=== PATIENT | female | born 1960 | race American Indian/Alaskan Native ===

== ENCOUNTER 2021-10-29 20:24 | Inpatient (IN) | payer OTHER ==
--- NOTE | 2021-10-29 21:38 | Cat Scan Report ---
CT HEAD WITHOUT CONTRAST INDICATION / CLINICAL INFORMATION: neuro deficits <6hrs or sx present upon awakening. TECHNIQUE: All CT scans at this location are performed using CT dose reduction for ALARA by means of automated e xposure control. COMPARISON: None available. FINDINGS: HEMORRHAGE: No evidence of intracranial hemorrhage or extra-axial fluid collection. EXTRA-AXIAL SPACES: Cortical sulci, sylvian fissures and basilar cisterns have an unremarkable appear ance. VENTRICULAR SYSTEM: The third and lateral ventricles are of normal size and configuration. CEREBRAL PARENCHYMA: Regions of decreased brain parenchymal attenuation identified in the white matte r of both cerebral hemispheres most likely on the basis of microvascular ischemic change. A more well -circumscribed area of decreased brain parenchymal attenuation is observed on the anterior margin of the left internal capsule and head of left caudate nucleus. Small deep infarction in this location is suspected. Could be subacute or chronic. Magnetic resonance imaging of the brain would be useful to more accurately date this abnormality. Findings suggest presence of a remote small deep infarction in a right basal ganglia location. MIDLINE SHIFT OR HERNIATION: There is no mass effect. CEREBELLUM / BRAINSTEM: Brainstem and cerebellum have an unremarkable appearance. MIDLINE STRUCTURES:No abnormalities of the pituitary gland or pineal region are identified. INTRACRANIAL VESSELS:No abnormalities are identified on this noncontrast head CT. ORBITS: visualized portions of the orbits have an unremarkable appearance. SOFT TISSUES of HEAD: No significant abnormality. CALVARIUM: Evaluation of bone windows reveals no significant abnormalities. PARANASAL SINUSES / MASTOID AIR CELLS: Visualized portions of the paranasal sinuses are free from inf lammatory mucosal disease. Mastoid air cells are normally pneumatized. IMPRESSION: 1. A 1 cm diameter region of decreased attenuation is observed involving anterior limb of the left in ternal capsule and adjacent head of caudate nucleus. This likely represents a small deep infarction w hich could be subacute or chronic. Consider magnetic resonance imaging for further characterization o f this finding. Signer Name: Seferino Vera MD Signed: 10/29/2021 9:33 PM Workstation Name: [id number]
[2021-10-29 21:51] LABS: Basophils % (Auto) 0.7 % (0.0-1.8); Eosinophils # (Auto) 0.2 K/mm3 (0.0-0.4); Hematocrit 41.4 % (30.3-42.9); Hemoglobin 13.6 gm/dl (10.1-14.3); Lymphocytes % (Auto) 53.3 % (13.4-35.0); Mean Corpuscular HGB Conc 33 % (30-34); Mean Corpuscular Volume 90 fl (79-97); Monocytes # (Auto) 0.4 K/mm3 (0.0-0.8); Monocytes % (Auto) 5.9 % (0.0-7.3); Platelet Count 204 K/mm3 (140-440); Red Blood Count 4.61 M/mm3 (3.65-5.03); Red Cell Distribution Width 14.7 % (13.2-15.2)
[2021-10-29 21:59] LABS: INR 0.87 (0.87-1.13)
[2021-10-29 22:00] LABS: Partial Thromboplastin Time 29.3 Sec. (24.2-36.6)
[2021-10-29 22:13] LABS: BUN/Creatinine Ratio 21; Blood Urea Nitrogen 17 mg/dL (7-17); Calcium 9.7 mg/dL (8.4-10.2); Hemolysis Index 13
--- NOTE | 2021-10-30 00:23 | Emergency Department Report ---
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 Patient told her daughter who encouraged her to come to the emergency room and get evaluated. Patient also reports difficulty swallowing water yesterday morning. No fall or trauma reported. No other modifying or associated factors reported. - Related Data Allergies/Adverse Reactions: Allergies Allergy/AdvReac Type Severity Reaction Status Date / Time No Known Allergies Allergy Verified 10/29/21 20:38 ED Review of Systems ROS: Stated complaint: SLUR TALKING,STOKE SX Other details as noted in HPI Comment: All other systems reviewed and negative Neurological: other (Speech changes) ED Past Medical Hx - Past Medical History Previous Medical History?: Yes Hx Hypertension: Yes Hx CVA: Yes (LT SIDED DEFICITS 2018) Hx Diabetes: Yes (AGE 48) - Surgical History Past Surgical History?: No - Social History Smoking Status: Current Every Day Smoker ED Neuro Physical Exam - General Limitations: No Limitations General appearance: alert, in no apparent distress Suspected Stroke: Yes - Head Head exam: Present: normal inspection - Eye Eye exam: Present: normal appearance Pupils: Present: normal accommodation - ENT ENT exam: Present: normal exam, normal orophraynx, mucous membranes dry - Neck Neck exam: Present: normal inspection, full ROM. Absent: tenderness - Respiratory Respiratory exam: Present: normal lung sounds bilaterally. Absent: respiratory distress, accessory muscle use - Cardiovascular Cardiovascular Exam: Present: regular rate, normal rhythm, normal heart sounds - GI/Abdominal GI/Abdominal exam: Present: soft, normal bowel sounds. Absent: distended, tenderness - Extremities Exam Extremities exam: Present: normal inspection, full ROM, normal capillary refill. Absent: tenderness, pedal edema - Back Exam Back exam: Present: normal inspection. Absent: tenderness - Neurological Exam Neurological exam: Present: alert, oriented X3 - NIHSS Assessment Interval: Baseline 1a. Level of Consciousness: alert/keenly responsive 1b. LOC Questions: answers both correctly 1c. LOC Commands: performs tasks correctly 2. Best Gaze: normal 3. Visual: no visual loss 4. Facial Palsy: normal symmetrical movement 5b. Motor Arm Right: no drift 5a. Motor Arm Left: no drift 6a. Motor Leg Left: no drift 6b. Motor Leg Right: no drift 7. Limb Ataxia: absent 8. Sensory: normal 9. Best Language: no aphasia 10. Dysarthria: normal 11. Extinction/Inattention: no abnormality Total Score: 0 Stroke Severity: No Stroke Symptoms - Psychiatric Psychiatric exam: Present: normal affect, normal mood - Skin Skin exam: Present: warm, normal color ED Course Vital Signs 10/30/21 10/30/21 00:34 02:25 Temperature 98.5 F 98.5 F Pulse Rate 83 86 Respiratory 15 16 Rate Blood Pressure 200/83 212/89 [Left] O2 Sat by Pulse 100 Oximetry - Consultations Consultation #1: 10/30/21 02:50 Dr Galvan consulted to have patient seen during the day Consultation #2: 10/30/21 02:50 Dr Kramer consulted who accept pt for further evaluation and treatment - Lab Data Result diagrams: 10/29/21 21:35 10/29/21 21:35 Lab Results 10/29/21 10/29/21 10/29/21 Range/Units 21:35 21:35 21:35 WBC 7.4 (4.5-11.0) K/mm3 RBC 4.61 (3.65-5.03) M/mm3 Hgb 13.6 (10.1-14.3) gm/dl Hct 41.4 (30.3-42.9) % MCV 90 (79-97) fl MCH 30 (28-32) pg MCHC 33 (30-34) % RDW 14.7 (13.2-15.2) % Plt Count 204 (140-440) K/mm3 Lymph % (Auto) 53.3 H (13.4-35.0) % [place] % (Auto) 5.9 (0.0-7.3) % Eos % (Auto) 2.0 (0.0-4.3) % Baso % (Auto) 0.7 (0.0-1.8) % Lymph # (Auto) 4.0 (1.2-5.4) K/mm3 [place] # (Auto) 0.4 (0.0-0.8) K/mm3 Eos # (Auto) 0.2 (0.0-0.4) K/mm3 Baso # (Auto) 0.0 (0.0-0.1) K/mm3 Seg Neutrophils % 38.1 L (40.0-70.0) % Seg Neutrophils # 2.8 (1.8-7.7) K/mm3 PT 12.8 (12.2-14.9) Sec. INR 0.87 (0.87-1.13) APTT 29.3 (24.2-36.6) Sec. Thrombin Time (15.1-19.6) Sec. Sodium 146 H (137-145) mmol/L Potassium 4.0 (3.6-5.0) mmol/L Chloride 111.6 H (98-107) mmol/L Carbon Dioxide 25 (22-30) mmol/L Anion Gap 13 mmol/L BUN 17 (7-17) mg/dL Creatinine 0.8 (0.6-1.2) mg/dL Estimated GFR > 60 ml/min BUN/Creatinine Ratio 21 % Glucose 109 H (65-100) mg/dL Calcium 9.7 (8.4-10.2) mg/dL Troponin T < 0.010 (0.00-0.029) ng/mL 10/29/21 Range/Units 21:35 WBC (4.5-11.0) K/mm3 RBC (3.65-5.03) M/mm3 Hgb (10.1-14.3) gm/dl Hct (30.3-42.9) % MCV (79-97) fl MCH (28-32) pg MCHC (30-34) % RDW (13.2-15.2) % Plt Count (140-440) K/mm3 Lymph % (Auto) (13.4-35.0) % [place] % (Auto) (0.0-7.3) % Eos % (Auto) (0.0-4.3) % Baso % (Auto) (0.0-1.8) % Lymph # (Auto) (1.2-5.4) K/mm3 [place] # (Auto) (0.0-0.8) K/mm3 Eos # (Auto) (0.0-0.4) K/mm3 Baso # (Auto) (0.0-0.1) K/mm3 Seg Neutrophils % (40.0-70.0) % Seg Neutrophils # (1.8-7.7) K/mm3 PT (12.2-14.9) Sec. INR (0.87-1.13) APTT (24.2-36.6) Sec. Thrombin Time 41.5 H (15.1-19.6) Sec. Sodium (137-145) mmol/L Potassium (3.6-5.0) mmol/L Chloride (98-107) mmol/L Carbon Dioxide (22-30) mmol/L Anion Gap mmol/L BUN (7-17) mg/dL Creatinine (0.6-1.2) mg/dL Estimated GFR ml/min BUN/Creatinine Ratio % Glucose (65-100) mg/dL Calcium (8.4-10.2) mg/dL Troponin T (0.00-0.029) ng/mL - Medical Decision Making here with suspected stroke in a patient with recent history of CVA 2 years -- who now present with likely stroke -- will go ahead and rule out CVA with initial CT head and order CBC, CMP and UA for any infection or electrolytes abnormality -- NIH noted to be zero and the initial episode was 24 hours ago -- CT head resulted -- FINDINGS: HEMORRHAGE: No evidence of intracranial hemorrhage or extra-axial fluid collection. EXTRA-AXIAL SPACES: Cortical sulci, sylvian fissures and basilar cisterns have an unremarkable appearance. VENTRICULAR SYSTEM: The third and lateral ventricles are of normal size and configuration. CEREBRAL PARENCHYMA: Regions of decreased brain parenchymal attenuation identified in the white matter of both cerebral hemispheres most likely on the basis of microvascular ischemic change. A more well-circumscribed area of decreased brain parenchymal attenuation is observed on the anterior margin of the left internal capsule and head of left caudate nucleus. Small deep infarction in this location is suspected. Could be subacute or chronic. Magnetic resonance imaging of the brain would be useful to more accurately date this abnormality. Findings suggest presence of a remote small deep infarction in a right basal ganglia location. MIDLINE SHIFT OR HERNIATION: There is no mass effect. CEREBELLUM / BRAINSTEM: Brainstem and cerebellum have an unremarkable appearance. MIDLINE STRUCTURES:No abnormalities of the pituitary gland or pineal region are identified. INTRACRANIAL VESSELS:No abnormalities are identified on this noncontrast head CT. ORBITS: visualized portions of the orbits have an unremarkable appearance. SOFT TISSUES of HEAD: No significant abnormality. CALVARIUM: Evaluation of bone windows reveals no significant abnormalities. PARANASAL SINUSES / MASTOID AIR CELLS: Visualized portions of the paranasal sinuses are free from inflammatory mucosal disease. Mastoid air cells are normally pneumatized. IMPRESSION: 1. A 1 cm diameter region of decreased attenuation is observed involving anterior limb of the left internal capsule and adjacent head of caudate nucleus. This likely represents a small deep infarction which could be subacute or chronic. Consider magnetic resonance imaging for further characterization of this finding. Critical care attestation.: If time is entered above; I have spent that time in minutes in the direct care of this critically ill patient, excluding procedure time. ED Disposition Clinical Impression: CVA (cerebral vascular accident) Qualifiers: CVA mechanism: unspecified Qualified Code(s): I63.9 - Cerebral infarction, unspecified Disposition: 09 ADMITTED INPATIENT Is pt being admited?: Yes Does the pt Need Aspirin: No Condition: Stable Time of Disposition: 02:51
[2021-10-30] MEDS ORDERED: MORPHINE 2 MG/1 ML INJ IV PRN ×2 (02:48→04:07)
[2021-10-30] MEDS ORDERED: ACETAMINOPHEN 325 MG TAB PO PRN ×2 (02:48→04:07)
[2021-10-30] MEDS ORDERED: MORPHINE 4 MG/1 ML INJ IV PRN (04:07)
[2021-10-30] MEDS ORDERED: ALBUTEROL 2.5 MG/3 ML NEBU IH PRN (04:07)
[2021-10-30] MEDS ORDERED: ONDANSETRON 4 MG/2 ML INJ IV PRN (04:07)
[2021-10-30] MEDS ORDERED: DEXTROSE 50% IN WATER (25GM) 50 ML SYRINGE IV PRN (04:07)
[2021-10-30] MEDS ORDERED: SODIUM CHLORIDE 0.9% 1000 ML 1,000 ML IV SCH (04:15)
--- NOTE | 2021-10-30 04:15 | History and Physical Report ---
History of Present Illness Date of examination: 10/30/21 Date of admission: 10/30/21 02:48 Chief complaint: Unable to speak History of present illness: 61-year-old female with a history of diabetes, hypertension and CVA about 2 years ago with left-sided weakness as a residual now came in tonight with an episode of inability to speak 24 hours ago yesterday morning which is improved at this point. Patient told her daughter who encouraged her to come to the emergency room and get evaluated. Patient also reports difficulty swallowing water yesterday morning. No fall or trauma reported. No other modifying or associated factors reported. 's initial CT scan of the head shows a 1 cm diameter region of decreased attenuation is observed involving anterior limb of the left internal capsule and adjacent head of the caudate nucleus. This likely represents a small deep infection which could be subacute or chronic. So going to admit the patient we will put the patient on aspirin, statin order MRI of the brain and consult neurology Past History Past Medical History: diabetes, hypertension, stroke Past Surgical History: No surgical history Social history: smoking Family history: diabetes, hypertension Medications and Allergies Allergies Allergy/AdvReac Type Severity Reaction Status Date / Time No Known Allergies Allergy Verified 10/29/21 20:38 Active Meds: Active Medications Acetaminophen (Acetaminophen 325 Mg Tab) 650 mg PO Q4H PRN PRN Reason: Pain MILD(1-3)/Fever >100.5/VIGIL Morphine Sulfate (Morphine 2 Mg/1 Ml Inj) 2 mg IV Q4H PRN PRN Reason: Pain, Moderate (4-6) Ondansetron HCl (Ondansetron 4 Mg/2 Ml Inj) 4 mg IV Q8H PRN PRN Reason: Nausea And Vomiting Sodium Chloride (Sodium Chloride 0.9% 10 Ml Flush Syringe) 10 ml IV BID MICH Last Admin: 10/30/21 03:17 Dose: 10 ml Sodium Chloride (Sodium Chloride 0.9% 10 Ml Flush Syringe) 10 ml IV PRN PRN PRN Reason: LINE FLUSH Review of Systems All systems: negative Neurological: change in speech, other (Unable to speak) Exam - Constitutional Vitals: Temp Pulse Resp BP Pulse Ox 98.5 F 86 16 212/89 100 10/30/21 02:25 10/30/21 02:25 10/30/21 02:25 10/30/21 02:25 10/30/21 00:34 General appearance: Present: no acute distress, well-nourished - EENT Eyes: Present: PERRL ENT: hearing intact, clear oral mucosa - Neck Neck: Present: supple, normal ROM - Respiratory Respiratory effort: normal Respiratory: bilateral: CTA - Cardiovascular Heart Sounds: Present: S1 & S2. Absent: rub, click - Extremities Extremities: pulses symmetrical, No edema Peripheral Pulses: within normal limits - Abdominal General gastrointestinal: Present: soft, non-tender, non-distended, normal bowel sounds Female genitourinary: Present: normal - Integumentary Integumentary: Present: clear, warm, dry - Musculoskeletal Musculoskeletal: gait normal, strength equal bilaterally - Psychiatric Psychiatric: appropriate mood/affect, intact judgment & insight - Neurologic Neurologic: CNII-XII intact, moves all extremities HEART Score - HEART Score Troponin: Troponin T < 0.010 ng/mL (0.00-0.029) 10/29/21 21:35 Results - Labs CBC & Chem 7: 10/29/21 21:35 10/29/21 21:35 Labs: Laboratory Last Values WBC 7.4 K/mm3 (4.5-11.0) 10/29/21 21:35 RBC 4.61 M/mm3 (3.65-5.03) 10/29/21 21:35 Hgb 13.6 gm/dl (10.1-14.3) 10/29/21 21:35 Hct 41.4 % (30.3-42.9) 10/29/21 21:35 MCV 90 fl (79-97) 10/29/21 21:35 MCH 30 pg (28-32) 10/29/21 21:35 MCHC 33 % (30-34) 10/29/21 21:35 RDW 14.7 % (13.2-15.2) 10/29/21 21:35 Plt Count 204 K/mm3 (140-440) 10/29/21 21:35 Lymph % (Auto) 53.3 % (13.4-35.0) H 10/29/21 21:35 [place] % (Auto) 5.9 % (0.0-7.3) 10/29/21 21:35 Eos % (Auto) 2.0 % (0.0-4.3) 10/29/21 21:35 Baso % (Auto) 0.7 % (0.0-1.8) 10/29/21 21:35 Lymph # (Auto) 4.0 K/mm3 (1.2-5.4) 10/29/21 21:35 [place] # (Auto) 0.4 K/mm3 (0.0-0.8) 10/29/21 21:35 Eos # (Auto) 0.2 K/mm3 (0.0-0.4) 10/29/21 21:35 Baso # (Auto) 0.0 K/mm3 (0.0-0.1) 10/29/21 21:35 Seg Neutrophils % 38.1 % (40.0-70.0) L 10/29/21 21:35 Seg Neutrophils # 2.8 K/mm3 (1.8-7.7) 10/29/21 21:35 PT 12.8 Sec. (12.2-14.9) 10/29/21 21:35 INR 0.87 (0.87-1.13) 10/29/21 21:35 APTT 29.3 Sec. (24.2-36.6) 10/29/21 21:35 Thrombin Time 41.5 Sec. (15.1-19.6) H 10/29/21 21:35 Sodium 146 mmol/L (137-145) H 10/29/21 21:35 Potassium 4.0 mmol/L (3.6-5.0) 10/29/21 21:35 Chloride 111.6 mmol/L (98-107) H 10/29/21 21:35 Carbon Dioxide 25 mmol/L (22-30) 10/29/21 21:35 Anion Gap 13 mmol/L 10/29/21 21:35 BUN 17 mg/dL (7-17) 10/29/21 21:35 Creatinine 0.8 mg/dL (0.6-1.2) 10/29/21 21:35 Estimated GFR > 60 ml/min 10/29/21 21:35 BUN/Creatinine Ratio 21 % 10/29/21 21:35 Glucose 109 mg/dL (65-100) H 10/29/21 21:35 Calcium 9.7 mg/dL (8.4-10.2) 10/29/21 21:35 Troponin T < 0.010 ng/mL (0.00-0.029) 10/29/21 21:35 - Imaging and Cardiology CT Scan - head: report reviewed Assessment and Plan VTE prophylaxis?: Mechanical Plan of care discussed with patient/family: Yes - Patient Problems (1) CVA (cerebral vascular accident) Current Visit: Yes Status: Acute Qualifiers: CVA mechanism: unspecified Qualified Code(s): I63.9 - Cerebral infarction, unspecified Plan to address problem: Admit the patient to the medical telemetry. NPO. Aspirin 325 mg p.o. daily. Lipitor 40 mg p.o. daily. PT OT speech evaluation. MRI of the brain and MRA of the brain and neck with and without contrast, echocardiogram. Neurology evaluation (2) Hypertension Current Visit: Yes Status: Acute Plan to address problem: Hydralazine 10 mg IV every 6 hours as needed. We will continue the home medication. We will monitor the blood pressure closely (3) Diabetes Current Visit: Yes Status: Acute Plan to address problem: Accu-Chek every 6 hours with moderate dose Humalog coverage. Diabetic education. Recheck BMP in the morning (4) Tobacco abuse Current Visit: Yes Status: Acute Plan to address problem: We counseled regarding quit smoking. We put the patient on nicotine patch 40 mg daily (5) Old cerebrovascular accident (CVA) without late effect Current Visit: Yes Status: Acute Plan to address problem: Aspirin 325 mg p.o. daily. Lipitor 40 mg p.o. daily. PT OT speech evaluation. MRI of the brain and MRA of the brain and neck with and without contrast, ec hocardiogram. Neurology evaluation (6) DVT prophylaxis Current Visit: Yes Status: Acute Plan to address problem: SCD for DVT prophylaxis. Pepcid 20 mg IV every 12 hours for GI prophylaxis. Patient is a full code
[2021-10-30] MEDS: INSULIN LISPRO 100 UNIT/ML SUB-Q SCH ×4 (06:14→17:34)
[2021-10-30] MEDS ORDERED: IPRATROPIUM/ALBUTEROL SULFATE 3 ML AMPUL.NEB IH SCH (08:00)
[2021-10-30] MEDS ORDERED: ASPIRIN 325 MG TAB PO SCH (10:00)
[2021-10-30] MEDS ORDERED: hydrALAZINE 20 MG/1 ML INJ IV NR (10:10)
--- NOTE | 2021-10-30 10:11 | Progress Note ---
Assessment and Plan Assessment and plan: - Patient Problems --Acute CVA (cerebral vascular accident) Aspirin 81 mg p.o. daily. Neurology added Plavix 75 mg p.o. daily for 21 days Lipitor 40 mg p.o. daily. PT OT speech evaluation. CT head CTA neck MRI brain; MRA brain' TTE; transthoracic echo; bubble study no PFO EF 55 to 60% Dysarthria; speech therapy has evaluated,, Patient's speech significantly improved still slightly slow but family Dysphagia; speech and swallow evaluated the patient modified barium swallow study today Recommended mechanical soft diet ss tolerated PT evaluation and recommendations/outpatient PT For OT evaluation recommendations/walker and home health OT Rehab evaluation --Hypertension/permissive hypertension 24 to 48 hours Continue current antihypertensives As needed medications -- Type II diabetes melitis; Accu-Cheks sliding scale coverage ADA diet and insulin as needed -- Ongoing tobacco abuse Smoking cessation counseling Discussed with sequelae of long-term tobacco use Recent complications Strongly advised to quit tobacco use, consider nicotine patch as needed --Old history of CVA without residual deficit Aspirin 325 mg p.o. daily. Lipitor 40 mg p.o. daily. PT OT speech evaluation. MRI of the brain and MRA of the brain and neck with and without contrast, echocardiogram. Neurology evaluation --DVT prophylaxis SCD for DVT prophylaxis. Pepcid 20 mg IV every 12 hours for GI prophylaxis. Patient is a full code --Counseling smoking cessation +15 minutes Advance care plan +35 minutes I have discussed in detail patient's condition, discussed patient's diagnosis I also discussed in detail patient's tests and reports, consultants recommendations I discussed the diagnosis, I discussed with the patient the prognosis, the treatment plan And therapy plan, she had many questions, answered all of them, agreed with the treatment plan We will closely monitor the patient and adjust management as needed Plan of care reviewed with the patient and nurse Same day admission prolonged care inpatient service; 30 minutes Plan of care reviewed with the patient, 2 daughters at the bedside, patient's nurse And case management History Interval history: I have seen and examined the patient at the bedside Patient's chart and medications reviewed Patient was admitted acute CVA not a candidate for tPA Patient had dysarthria, dysphagia and left-sided weakness Neuro work-up is in progress Hospitalist Physical - Constitutional Vitals: Temp Pulse Resp BP Pulse Ox 97.9 F 83 18 204/94 96 10/30/21 09:30 10/30/21 09:30 10/30/21 09:30 10/30/21 09:30 10/30/21 09:30 General appearance: Present: no acute distress, well-nourished, other (Slow speech mild dysarthria) - EENT Eyes: Present: PERRL, EOM intact - Neck Neck: Present: supple, normal ROM - Respiratory Respiratory effort: normal Respiratory: bilateral: diminished, negative: rales, rhonchi, wheezing - Cardiovascular Rhythm: regular Heart Sounds: Present: S1 & S2 - Extremities Extremities: no ischemia, No edema - Abdominal General gastrointestinal: soft, non-tender, non-distended, normal bowel sounds - Integumentary Integumentary: Present: clear, warm - Psychiatric Psychiatric: appropriate mood/affect, cooperative - Neurologic Neurologic: other (Acute CVA with dysarthria /dysphagia) HEART Score - HEART Score Troponin: Troponin T < 0.010 ng/mL (0.00-0.029) 10/29/21 21:35 Results - Labs CBC & Chem 7: 10/31/21 05:46 10/31/21 12:00 Labs: Laboratory Last Values WBC 7.4 K/mm3 (4.5-11.0) 10/29/21 21:35 RBC 4.61 M/mm3 (3.65-5.03) 10/29/21 21:35 Hgb 13.6 gm/dl (10.1-14.3) 10/29/21 21:35 Hct 41.4 % (30.3-42.9) 10/29/21 21:35 MCV 90 fl (79-97) 10/29/21 21:35 MCH 30 pg (28-32) 10/29/21 21:35 MCHC 33 % (30-34) 10/29/21 21:35 RDW 14.7 % (13.2-15.2) 10/29/21 21:35 Plt Count 204 K/mm3 (140-440) 10/29/21 21:35 Lymph % (Auto) 53.3 % (13.4-35.0) H 10/29/21 21:35 [place] % (Auto) 5.9 % (0.0-7.3) 10/29/21 21:35 Eos % (Auto) 2.0 % (0.0-4.3) 10/29/21 21:35 Baso % (Auto) 0.7 % (0.0-1.8) 10/29/21 21:35 Lymph # (Auto) 4.0 K/mm3 (1.2-5.4) 10/29/21 21:35 [place] # (Auto) 0.4 K/mm3 (0.0-0.8) 10/29/21 21:35 Eos # (Auto) 0.2 K/mm3 (0.0-0.4) 10/29/21 21:35 Baso # (Auto) 0.0 K/mm3 (0.0-0.1) 10/29/21 21:35 Seg Neutrophils % 38.1 % (40.0-70.0) L 10/29/21 21:35 Seg Neutrophils # 2.8 K/mm3 (1.8-7.7) 10/29/21 21:35 PT 12.8 Sec. (12.2-14.9) 10/29/21 21:35 INR 0.87 (0.87-1.13) 10/29/21 21:35 APTT 29.3 Sec. (24.2-36.6) 10/29/21 21:35 Thrombin Time 41.5 Sec. (15.1-19.6) H 10/29/21 21:35 Sodium 146 mmol/L (137-145) H 10/29/21 21:35 Potassium 4.0 mmol/L (3.6-5.0) 10/29/21 21:35 Chloride 111.6 mmol/L (98-107) H 10/29/21 21:35 Carbon Dioxide 25 mmol/L (22-30) 10/29/21 21:35 Anion Gap 13 mmol/L 10/29/21 21:35 BUN 17 mg/dL (7-17) 10/29/21 21:35 Creatinine 0.8 mg/dL (0.6-1.2) 10/29/21 21:35 Estimated GFR > 60 ml/min 10/29/21 21:35 BUN/Creatinine Ratio 21 % 10/29/21 21:35 Glucose 109 mg/dL (65-100) H 10/29/21 21:35 POC Glucose 127 mg/dL (70-105) H 10/30/21 08:11 Calcium 9.7 mg/dL (8.4-10.2) 10/29/21 21:35 Troponin T < 0.010 ng/mL (0.00-0.029) 10/29/21 21:35 Active Medications - Current Medications Current Medications: Generic Name Dose Route Start Last Admin Trade Name Freq PRN Reason Stop Dose Admin Acetaminophen 650 mg 10/30/21 02:48 Acetaminophen 325 Mg Tab PO Q4H PRN Pain MILD(1-3)/Fever >100.5/VIGIL Albuterol 2.5 mg 10/30/21 04:07 Albuterol 2.5 Mg/3 Ml Nebu IH Q4HRT PRN Shortness Of Breath Aspirin 325 mg 10/30/21 10:00 Aspirin 325 Mg Tab PO QDAY [facility] Atorvastatin Calcium 40 mg 10/30/21 22:00 Atorvastatin 40 Mg Tab PO QHS [facility] Dextrose 0 ml 10/30/21 04:07 Dextrose 50% In Water (25gm) 50 Ml Syringe IV Q30MIN PRN Hypoglycemia Protocol Famotidine 20 mg 10/30/21 10:00 Famotidine 20 Mg/2 Ml Inj IV BID [facility] Sodium Chloride 1,000 mls @ 100 mls/hr 10/30/21 04:15 Nacl 0.9% 1000 Ml IV DIRECT [facility] Insulin Human Lispro 0 unit 10/30/21 06:00 10/30/21 06:14 Insulin Lispro 100 Unit/Ml SUB-Q Not Given Q6HR [facility] Protocol Morphine Sulfate 2 mg 10/30/21 02:48 Morphine 2 Mg/1 Ml Inj IV Q4H PRN Pain, Moderate (4-6) Morphine Sulfate 4 mg 10/30/21 04:07 Morphine 4 Mg/1 Ml Inj IV Q4H PRN Pain , Severe (7-10) Nicotine 14 mg 10/30/21 10:00 Nicotine 14 Mg/24 Hr Patch TD QDAY [facility] Ondansetron HCl 4 mg 10/30/21 02:48 Ondansetron 4 Mg/2 Ml Inj IV Q8H PRN Nausea And Vomiting Sodium Chloride 10 ml 10/30/21 03:00 10/30/21 03:17 Sodium Chloride 0.9% 10 Ml Flush Syringe IV 10 ml BID [facility] Administration Sodium Chloride 10 ml 10/30/21 02:48 Sodium Chloride 0.9% 10 Ml Flush Syringe IV PRN PRN LINE FLUSH
[2021-10-30] MEDS: NICOTINE 14 MG/24 HR PATCH TD SCH (11:22)
[2021-10-30] MEDS: FAMOTIDINE 20 MG/2 ML INJ IV SCH ×2 (11:23→21:38)
--- NOTE | 2021-10-30 13:06 | Magnetic Resonance Report ---
MRI BRAIN WITHOUT CONTRAST INDICATION / CLINICAL INFORMATION: stroke, LT SIDED WEAKNESS. TECHNIQUE: Multisequence, multiplanar images were obtained. COMPARISON: None available. FINDINGS: CEREBRAL and CEREBELLAR HEMISPHERES: There are approximately 6 small area of diffusion restriction on the left MCA distribution. The largest area measures 9 mm in the left lamas radiata on diffusion im age 16. There are 3 smaller areas of cortical diffusion restriction in the posterior, superior left t emporal lobe measuring 5 mm. Scattered areas of increased T2 signal in the right and chronic microvas cular ischemic infarct. No evidence of mass or mass effect. No midline shift. No acute hemorrhage. No extra-axial fluid collection. VENTRICLES: Normal in size and configuration for age. VISUALIZED ORBITS: No significant abnormality. VISUALIZED PARANASAL SINUSES: No significant abnormality. ADDITIONAL FINDINGS: None. IMPRESSION: 4 cm areas of diffusion restriction/subacute ischemia in the left MCA distribution as described. Mild nonspecific chronic white matter changes. MRA HEAD WITHOUT CONTRAST INDICATION / CLINICAL INFORMATION: 61 years Female; stroke, LT SIDED WEAKNESS. TECHNIQUE: 3-D time of flight. NASCET type criteria used to evaluate stenoses. COMPARISON: None available. FINDINGS: INTERNAL CAROTID ARTERIES: No significant narrowing appreciated. VERTEBROBASILAR SYSTEM: No significant narrowing appreciated. The left vertebral artery is dominant. DISTAL BRANCHES: Distal branches of the anterior, middle, and posterior cerebral arteries are fairly symmetric in appearance and number. ANEURYSM: None identified. IMPRESSION: No significant abnormality on this MRA of the brain. No large vessel occlusion or high-grade stenosis is appreciated. Signer Name: Aldair Sparrow Jr, MD Signed: 10/30/2021 1:01 PM Workstation Name: [id number]
[2021-10-30] MEDS: ONDANSETRON 4 MG/2 ML INJ IV PRN (13:30)
[2021-10-30] MEDS: hydrALAZINE 25 MG TAB PO SCH ×2 (15:17→21:38)
--- NOTE | 2021-10-30 19:53 | Consultation ---
History of Present Illness Consult date: 10/30/21 Reason for Consult: CVA Chief complaint: Difficulty speaking and difficulty swallowing History of present illness: 61 yo female with htn, dm, cva w/ residual left-sided weakness, tobacco abuse, who presents with a ~24 hour onset of difficulty with language and difficulty with swallowing. Patient is not seen via televideo today due to lack of availability. Past History Past Medical History: diabetes, hypertension, stroke Past Surgical History: No surgical history Social history: smoking Family history: diabetes, hypertension Medications and Allergies Allergies Allergy/AdvReac Type Severity Reaction Status Date / Time No Known Allergies Allergy Verified 10/29/21 20:38 Active Meds: Active Medications Acetaminophen (Acetaminophen 325 Mg Tab) 650 mg PO Q4H PRN PRN Reason: Pain MILD(1-3)/Fever >100.5/VIGIL Albuterol (Albuterol 2.5 Mg/3 Ml Nebu) 2.5 mg IH Q4HRT PRN PRN Reason: Shortness Of Breath Aspirin (Aspirin 325 Mg Tab) 325 mg PO QDAY [facility] Last Admin: 10/30/21 11:22 Dose: 325 mg Atorvastatin Calcium (Atorvastatin 40 Mg Tab) 40 mg PO QHS [facility] Dextrose (Dextrose 50% In Water (25gm) 50 Ml Syringe) 0 ml IV Q30MIN PRN; Protocol PRN Reason: Hypoglycemia Famotidine (Famotidine 20 Mg/2 Ml Inj) 20 mg IV BID [facility] Last Admin: 10/30/21 11:23 Dose: 20 mg Hydralazine HCl (Hydralazine 25 Mg Tab) 25 mg PO Q8HR [facility] Last Admin: 10/30/21 15:17 Dose: 25 mg Insulin Human Lispro (Insulin Lispro 100 Unit/Ml) 0 unit SUB-Q Q6HR [facility]; Protocol Last Admin: 10/30/21 17:34 Dose: Not Given Morphine Sulfate (Morphine 2 Mg/1 Ml Inj) 2 mg IV Q4H PRN PRN Reason: Pain, Moderate (4-6) Morphine Sulfate (Morphine 4 Mg/1 Ml Inj) 4 mg IV Q4H PRN PRN Reason: Pain , Severe (7-10) Nicotine (Nicotine 14 Mg/24 Hr Patch) 14 mg TD QDAY [facility] Last Admin: 10/30/21 11:22 Dose: 14 mg Ondansetron HCl (Ondansetron 4 Mg/2 Ml Inj) 4 mg IV Q8H PRN PRN Reason: Nausea And Vomiting Last Admin: 10/30/21 13:30 Dose: 4 mg Sodium Chloride (Sodium Chloride 0.9% 10 Ml Flush Syringe) 10 ml IV BID [facility] Last Admin: 10/30/21 11:23 Dose: 10 ml Sodium Chloride (Sodium Chloride 0.9% 10 Ml Flush Syringe) 10 ml IV PRN PRN PRN Reason: LINE FLUSH Physical Examination - Vital Signs Vital Signs: Vital Signs Temp Pulse Resp BP Pulse Ox 98.5 F 83 15 200/83 100 10/30/21 00:34 10/30/21 00:34 10/30/21 00:34 10/30/21 00:34 10/30/21 00:34 Results - Laboratory Findings CBC and BMP: 10/29/21 21:35 10/29/21 21:35 Abnormal Lab Findings: Abnormal Labs 10/29/21 10/29/21 10/29/21 21:35 21:35 21:35 Lymph % (Auto) 53.3 H Seg Neutrophils % 38.1 L Thrombin Time 41.5 H Sodium 146 H Chloride 111.6 H Glucose 109 H POC Glucose 10/30/21 10/30/21 10/30/21 05:53 08:11 13:03 Lymph % (Auto) Seg Neutrophils % Thrombin Time Sodium Chloride Glucose POC Glucose 126 H 127 H 129 H 10/30/21 15:45 Lymph % (Auto) Seg Neutrophils % Thrombin Time Sodium Chloride Glucose POC Glucose 134 H Assessment and Plan 61 yo female with htn, dm, cva w/ residual left-sided weakness, tobacco abuse, who presents with a ~24 hour onset of difficulty with language and difficulty with swallowing. 1. Acute Ischemic Stroke / TIA - aspirin 81 mg po qda; plavix 75 mg po qday x21 days; statin therapy for a goal ldl of 70; permissive htn for 24 more hours; nihss q4 hours; confirm ldl, tsh, a1c; tte results pending; ordered cta neck w/ wo contrast; st evaluation/monitoring; stroke education upon discharge. 2. Hypertension - permissive htn for 24 more hours. 3. DM - maintain euglycemia. 4. Aphasia / Dsphagia - st / swallow evaluation / monitoring. 5. Tobacco Abuse - outpatient smoking cessation program via pcp. Neno Galvan MD Neurology
[2021-10-31] MEDS: INSULIN LISPRO 100 UNIT/ML SUB-Q SCH ×4 (01:30→18:14)
[2021-10-31] MEDS: hydrALAZINE 25 MG TAB PO SCH ×3 (05:10→22:33)
[2021-10-31 06:22] LABS: Basophils % (Auto) 0.6 % (0.0-1.8); Eosinophils # (Auto) 0.1 K/mm3 (0.0-0.4); Eosinophils % (Auto) 2.1 % (0.0-4.3); Hematocrit 41.6 % (30.3-42.9); Hemoglobin 13.4 gm/dl (10.1-14.3); Lymphocytes # (Auto) 3.7 K/mm3 (1.2-5.4); Lymphocytes % (Auto) 54.2 % (13.4-35.0); Mean Corpuscular HGB Conc 32 % (30-34); Mean Corpuscular Volume 90 fl (79-97); Monocytes # (Auto) 0.4 K/mm3 (0.0-0.8); Monocytes % (Auto) 5.7 % (0.0-7.3); Platelet Count 196 K/mm3 (140-440); Red Blood Count 4.62 M/mm3 (3.65-5.03); Red Cell Distribution Width 14.7 % (13.2-15.2)
--- NOTE | 2021-10-31 10:58 | Electrocardiograph Report ---
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
[2021-10-31] MEDS: FAMOTIDINE 20 MG/2 ML INJ IV SCH ×2 (11:54→22:33)
[2021-10-31] MEDS: ASPIRIN EC 81 MG TAB PO SCH (11:54)
[2021-10-31] MEDS: CLOPIDOGREL 75 MG TAB PO SCH (11:54)
[2021-10-31] MEDS: NICOTINE 14 MG/24 HR PATCH TD SCH (11:54)
--- NOTE | 2021-10-31 12:18 | Cat Scan Report ---
CT ANGIO NECK INDICATION / CLINICAL INFORMATION: 61 years Female; acute ischemic stroke. TECHNIQUE: Thin cut axial images obtained through the head during IV bolus contrast administration. S agittal, coronal, and 3 plane MIP reconstructions performed by the technologist. NASCET type criteria used evaluate stenoses. All CT scans at this location are performed using CT dose reduction for ALAR A by means of automated exposure control. COMPARISON: None available. FINDINGS: ARCH: Normal aortic arch branching suggested. CAROTID ARTERIES: The visualized common and internal carotid arteries are widely patent. Mild partial ly calcified plaques are identified in the carotid bulbs, right greater than left. There is moderate atherosclerotic disease in the supraclinoid ICAs. VERTEBRAL ARTERIES: Left vertebral system seen. No significant stenosis appreciated. ADDITIONAL FINDINGS: Remainder of the surrounding soft tissues are grossly normal. IMPRESSION: No significant stenosis appreciated on this CTA of the neck. Signer Name: Aldair Sparrow Jr, MD Signed: 10/31/2021 12:14 PM Workstation Name: [id number]
[2021-10-31 12:57] LABS: BUN/Creatinine Ratio 16; Blood Urea Nitrogen 14 mg/dL (7-17); Calcium 9.8 mg/dL (8.4-10.2); Chol/HDL Ratio 4.81 %; HDL Cholesterol 54 mg/dL (40-59); Hemolysis Index 13; LDL Cholesterol,Direct 183 mg/dL (50-130)
--- NOTE | 2021-10-31 13:17 | Fluoroscopy Report ---
MODIFIED BARIUM SWALLOW INDICATION: Coughing with thin liquids- dysphagia TECHNIQUE: Swallowing was evaluated in the lateral position under direct fluoroscopy. FINDINGS: The patient was evaluated with thin liquid, puree and semisolid consistencies. Deglutition was normal. No penetration or aspiration was witnessed. IMPRESSION: Unremarkable exam. Fluoroscopic time: 1.1 minutes Number of fluoroscopic images: 1 Signer Name: Aldair Sparrow Jr, MD Signed: 10/31/2021 1:12 PM Workstation Name: [id number]
--- NOTE | 2021-10-31 16:49 | Consultation ---
History of Present Illness Consult date: 10/31/21 Reason for Consult: CVA Chief complaint: Difficulty speaking and difficulty swallowing History of present illness: 61 yo female with htn, dm, cva w/ residual left-sided weakness, tobacco abuse, who presents with a ~24 hour onset of difficulty with language and difficulty with swallowing. She feels like her speech and swallowing have improved but may not be quite back to normal. Denies a hx of atrial fibrillation or symptoms of palpitations. Continue 1 ppd of tobacco. Past History Past Medical History: diabetes, hypertension, stroke Past Surgical History: No surgical history Social history: smoking Family history: diabetes, hypertension Medications and Allergies Allergies Allergy/AdvReac Type Severity Reaction Status Date / Time No Known Allergies Allergy Verified 10/29/21 20:38 Active Meds: Active Medications Acetaminophen (Acetaminophen 325 Mg Tab) 650 mg PO Q4H PRN PRN Reason: Pain MILD(1-3)/Fever >100.5/VIGIL Albuterol (Albuterol 2.5 Mg/3 Ml Nebu) 2.5 mg IH Q4HRT PRN PRN Reason: Shortness Of Breath Aspirin (Aspirin Ec 81 Mg Tab) 81 mg PO QDAY [facility] Last Admin: 10/31/21 11:54 Dose: 81 mg Atorvastatin Calcium (Atorvastatin 40 Mg Tab) 40 mg PO QHS [facility] Last Admin: 10/30/21 21:38 Dose: 40 mg Clopidogrel Bisulfate (Clopidogrel 75 Mg Tab) 75 mg PO QDAY [facility] Stop: 11/20/21 10:01 Last Admin: 10/31/21 11:54 Dose: 75 mg Dextrose (Dextrose 50% In Water (25gm) 50 Ml Syringe) 0 ml IV Q30MIN PRN; Protocol PRN Reason: Hypoglycemia Famotidine (Famotidine 20 Mg/2 Ml Inj) 20 mg IV BID [facility] Last Admin: 10/31/21 11:54 Dose: 20 mg Hydralazine HCl (Hydralazine 25 Mg Tab) 25 mg PO Q8HR [facility] Last Admin: 10/31/21 05:10 Dose: 25 mg Insulin Human Lispro (Insulin Lispro 100 Unit/Ml) 0 unit SUB-Q Q6HR [facility]; Protocol Last Admin: 10/31/21 08:16 Dose: Not Given Morphine Sulfate (Morphine 2 Mg/1 Ml Inj) 2 mg IV Q4H PRN PRN Reason: Pain, Moderate (4-6) Morphine Sulfate (Morphine 4 Mg/1 Ml Inj) 4 mg IV Q4H PRN PRN Reason: Pain , Severe (7-10) Nicotine (Nicotine 14 Mg/24 Hr Patch) 14 mg TD QDAY [facility] Last Admin: 10/31/21 11:54 Dose: 14 mg Ondansetron HCl (Ondansetron 4 Mg/2 Ml Inj) 4 mg IV Q8H PRN PRN Reason: Nausea And Vomiting Last Admin: 10/30/21 13:30 Dose: 4 mg Sodium Chloride (Sodium Chloride 0.9% 10 Ml Flush Syringe) 10 ml IV BID [facility] Last Admin: 10/31/21 11:55 Dose: 10 ml Sodium Chloride (Sodium Chloride 0.9% 10 Ml Flush Syringe) 10 ml IV PRN PRN PRN Reason: LINE FLUSH Review of Systems All systems: negative (as per hpi;) Physical Examination - Vital Signs Vital Signs: Vital Signs Temp Pulse Resp BP Pulse Ox 98.5 F 83 15 200/83 100 10/30/21 00:34 10/30/21 00:34 10/30/21 00:34 10/30/21 00:34 10/30/21 00:34 - Physical Exam Narrative exam: Gen: nad, well-nourished; Head: normocephalic; Eyes: no gaze deviation; no ptosis; ENT: normal vocalization; CVS: warm and well-perfused; Pulm: no respiratory distress; GI: appears non-distended; Ext: no cyanosis appreciated at distal extremities; Skin: no acute rash at distal extremities; Heme: no pathologic ecchymosis appreciated at distal extremities; Neuro: alert, oriented to name, age, month, year, surroundings, no dysarthria, slight aphasia, CN 2 - PERRL, visual kern grossly intact, CN 3, 4, 6 - EOMI, CN 5 - facial sensation symmetric to light touch, CN 7 - facial movement with mild right droop, CN 8 - hearing grossly intact, CN 9, 10 - uvula midline, CN 11 symmetric shoulder movement, CN 12 - tongue deviation slightly to the right Motor - at least 4+/5 at all exts except 4/5 at LLE; Sensory - light touch symmetric, Cerebellar - fnf /hts intact except with left hts, Gait - deferred secondary to fall risk; NIHSS (1a.) Level of Consciousness:0 (1b.) LOC Questions:0 (1c.) LOC Commands:0 (2.) Best Gaze:0 (3.) Visual:0 (4.) Facial Palsy:1 (5a.) Motor Arm, Left:0 (5b.) Motor Arm, Right:0 (6a.) Motor Leg, Left:0 (6b.) Motor Leg, Right:0 (7.) Limb Ataxia:1 (8.) Sensory:0 (9.) Best Language:1 (10.) Dysarthria:0 (11.) Extinction and Inattention:0 NIHSS Total Score: 3 Results - Laboratory Findings CBC and BMP: 10/31/21 05:46 10/31/21 12:00 Abnormal Lab Findings: Abnormal Labs 10/29/21 10/29/21 10/29/21 21:35 21:35 21:35 Lymph % (Auto) 53.3 H Seg Neutrophils % 38.1 L Thrombin Time 41.5 H Sodium 146 H Chloride 111.6 H Glucose 109 H POC Glucose Cholesterol LDL Cholesterol Direct 10/30/21 10/30/21 10/30/21 05:53 08:11 13:03 Lymph % (Auto) Seg Neutrophils % Thrombin Time Sodium Chloride Glucose POC Glucose 126 H 127 H 129 H Cholesterol LDL Cholesterol Direct 10/30/21 10/31/21 10/31/21 15:45 05:46 07:53 Lymph % (Auto) 54.2 H Seg Neutrophils % 37.4 L Thrombin Time Sodium Chloride Glucose POC Glucose 134 H 120 H Cholesterol LDL Cholesterol Direct 10/31/21 12:00 Lymph % (Auto) Seg Neutrophils % Thrombin Time Sodium Chloride Glucose 108 H POC Glucose Cholesterol 260 H LDL Cholesterol Direct 183 H Assessment and Plan 61 yo female with htn, dm, cva w/ residual left-sided weakness, tobacco abuse, who presents with a ~24 hour onset of difficulty with language and difficulty wi th swallowing. 1. Acute Ischemic Stroke ([facility]: cardioembolic) - aspirin 81 mg po qday; plavix 75 mg po qday x21 days; statin therapy for a goal ldl of 70; aim for normotension; nihss q4 hours x24 hours and then per floor routine; confirm ldl 183, ordered tsh & covid-19; tte results pending; recommend becky and long-term cardiac monitoring to r/o paroxysmal afib or cardioembolic source; normal cta neck w/ wo contrast; st evaluation/monitoring; stroke education upon discharge. 2. Hypertension - aim for normotension. 3. DM - maintain euglycemia. 4. Aphasia / Dysphagia - st / swallow evaluation / monitoring. 5. Tobacco Abuse - outpatient smoking cessation program via pcp. Neno Galvan MD Neurology
[2021-10-31] MEDS ORDERED: ENOXAPARIN 40 MG/0.4 ML INJ SUB-Q SCH (22:00)
[2021-11-01] MEDS: INSULIN LISPRO 100 UNIT/ML SUB-Q SCH ×3 (00:05→12:20)
[2021-11-01] MEDS: hydrALAZINE 25 MG TAB PO SCH (06:38)
[2021-11-01] MEDS: ASPIRIN EC 81 MG TAB PO SCH (09:25)
[2021-11-01] MEDS: CLOPIDOGREL 75 MG TAB PO SCH (09:25)
[2021-11-01] MEDS: NICOTINE 14 MG/24 HR PATCH TD SCH (09:25)
[2021-11-01] MEDS: FAMOTIDINE 20 MG/2 ML INJ IV SCH (09:25)
[2021-11-01] MEDS ORDERED: hydrALAZINE 20 MG/1 ML INJ IV ONE (09:26)
[2021-11-01] MEDS: ONDANSETRON 4 MG/2 ML INJ IV PRN (10:12)
[2021-11-01] MEDS ORDERED: NIFEdipine XL 30 MG TAB PO ONE (11:03)
[2021-11-01] MEDS ORDERED: hydrALAZINE 25 MG TAB PO SCH (11:05)
[2021-11-01 14:14] VITALS: BP 165/88
--- NOTE | 2021-11-01 15:04 | Discharge Summary ---
Providers - Providers Date of Admission: 10/30/21 02:48 Date of discharge: 11/01/21 Attending physician: ADRIA CRAWFORD 10/30/21 02:48 Consult to Physician [CONS] Routine Comment: Consulting Provider: JOON CALERO Physician Instructions: Reason For Exam: stroke 10/30/21 04:07 Consult to Dietitian/Nutrition [CONS] Routine Physician Instructions: Reason For Exam: Reason for Consult: Diet education Occupational Therapy Evaluate and Treat [CONS] Routine Comment: Reason For Exam: Neuro deficits Physical Therapy Evaluation and Treat [CONS] Routine Comment: Reason For Exam: Neuro deficits 10/30/21 12:02 Speech Therapy Evaluation and Treat [CONS] Routine Reason For Exam: swallow evaluation Primary care physician: MINE BOSS Hospitalization Reason for admission: Sudden episode of slurred speech and difficulty swallowing Condition: Stable Pertinent studies: CT head without contrast; a 1 cm diameter region of decreased attenuation is observed involving anterior limb of the left internal capsule and adjacent head of caudate nucleus, This likely represent a small deep infarction which could be subacute or chronic consider MRI MRI brain; 4 cm area of diffusion restriction subacute ischemia in the left MCA distribution as described Mild nonspecific chronic white matter change MRA brain; no significant abnormality on the MRI of the brain no large vessel occlusion or high-grade stenosis is appreciated TTE; transthoracic echo; bubble study no PFO EF 55 to 60% CTA neck; no significant stenosis appreciated on the CT of the neck Modified barium swallow; unremarkable exam Hospital course: 61-year-old female patient with significant past medical history of type 2 diabetes mellitus old CVA with residual left-sided weakness ongoing tobacco use hypertension was admitted through emergency room with difficulty swallowing and slurred speech patient was not a candidate for tPA patient was evaluated and had extensive acute CVA work-up as mentioned above, MRI brain showed 4 cm area of diffusion restriction subacute ischemia in the left MCA distribution as described, MRI brain CTA neck TTE no acute abnormalities noted. Patient had difficulty speaking as well as difficulty swallowing dysarthria and dysphagia Evaluated by speech therapist patient's symptoms slowly but gradually improved initially tolerated liquids advance to GI soft advance to mechanical soft diet Patient's speech also significantly improved over the next 2 days and able to a rticulate well PT evaluated the patient recommended outpatient PT in the [facility] for unsteady gait, OT evaluate the patient patient did not need any needs except for shower chair, Today patient is comfortable, no new complaints, vital signs stable physical examination prior to discharge except for mild neurological deficit patient is hemodynamically and clinically stable neurology has cleared f or discharge on baby aspirin and Plavix 75 mg p.o. daily for 21 days and follow- up with outpatient neurologist for further evaluation and management Patient is hemodynamically and clinically stable at discharge Discharge diagnosis; --Acute CVA with residual weakness Not a candidate for tPA, aspirin and Plavix and statin PT, OT, ST, discharge home with home health --Dysarthria; speech therapy evaluated and managed Significant improvement --Dysphagia speech and swallow evaluated Diet was advanced from clear liquids to GI soft diet to mechanical soft diet today Patient tolerated well, no aspiration risk -- Hypertension; moderate control Continue current antihypertensives --Dyslipidemia; Statin and low-cholesterol diet - Ongoing tobacco use; smoking cessation counseling done Advised nicotine patch -- Type 2 diabetes mellitus; moderate control Accu-Cheks sliding scale coverage ADA diet and insulin as needed -- History of fall CVA with residual weakness; Continue supportive care --Obesity BMI 32.3; Advised dietary modification, exercise as tolerated and weight reduction when medically stable Patient is hemodynamically and clinically stable at discharge Disposition: 01 HOME / SELF CARE / HOMELESS Final Discharge Diagnosis (Prints w/discharge instructions): Acute CVA with residual weakness. Dysarthria. Dysphagia. Hypertension. Type 2 diabetes mellitus. Ongoing tobacco use. History of old CVA Time spent for discharge: 35 min Core Measure Documentation - Palliative Care Palliative Care/ Comfort Measures: Not Applicable - Core Measures Any of the following diagnoses?: stroke - Stroke Discharge Requirements Statin for LDL = or >70 mg/dl on DC: Yes Anticoag for atrial fib/atrial flutter: Not Applicable Antithrombotic for ischemic stroke: Yes Exam - Constitutional Vitals: Temp Pulse Resp BP Pulse Ox 98.0 F 100 H 18 165/88 100 11/01/21 12:15 11/01/21 12:15 11/01/21 12:15 11/01/21 12:15 11/01/21 12:15 General appearance: Present: no acute distress, well-nourished - EENT Eyes: Present: PERRL, EOM intact - Neck Neck: Present: supple, normal ROM - Respiratory Respiratory effort: normal Respiratory: bilateral: diminished, negative: rales, rhonchi, wheezing - Cardiovascular Rhythm: regular Heart Sounds: Present: S1 & S2 - Extremities Extremities: no ischemia, No edema - Abdominal General gastrointestinal: Present: soft, non-tender, non-distended, normal bowel sounds - Integumentary Integumentary: Present: clear, warm - Musculoskeletal Musculoskeletal: strength equal bilaterally, generalized weakness - Psychiatric Psychiatric: appropriate mood/affect, cooperative - Neurologic Neurologic: moves all extremities Plan Activity: advance as tolerated, fall precautions Diet: other (Cardiac diet) Special Instructions: smoking cessation, physical therapy (Outpatient), occupational therapy (Outpatient) Additional Instructions: If you have worsening symptoms contact MD or go to the nearest emergency room as needed. Fall precautions. Aspiration precautions. Outpatient physical therapy and Occupational Therapy. Follow-up private neurologist in 1 to 2 weeks. Follow-up private MD in 1 week Follow up with: PRIMARY CAREMD [Primary Care Provider] - 3-5 Days DELMI GUZMÁN MD [Staff Physician] - 7 Days Prescriptions: Nicotine [Habitrol] 14 mg TD QDAY #30 patch Aspirin EC [Halfprin EC] 81 mg PO QDAY #30 tablet Hydralazine HCl 50 mg PO Q8H #90 AtorvaSTATin [Lipitor] 40 mg PO QHS #30 tablet Famotidine [Pepcid] 20 mg PO BID #60 tablet Clopidogrel [Plavix] 75 mg PO QDAY #19 tablet NIFEdipine XL [Procardia Xl] 30 mg PO Q12HR #60 tablet Other Discharge Orders: Occupational Therapy (Amb) Location: None Selected Physicial Therapy (Amb) Location: None Selected
[2021-11-01] MEDS ORDERED: FAMOTIDINE 20 MG TAB PO SCH (22:00)
[2021-11-01] MEDS ORDERED: NIFEdipine XL 30 MG TAB PO SCH (22:00)
--- NOTE | 2021-11-02 20:49 | Progress Note ---
Assessment and Plan Assessment and plan: --Acute CVA (cerebral vascular accident) Aspirin 81 mg p.o. daily. Neurology added Plavix 75 mg p.o. daily for 21 days Lipitor 40 mg p.o. daily. PT OT speech evaluation. CT head without contrast; a 1 cm diameter region of decreased attenuation is observed involving anterior limb of the left internal capsule and adjacent head of caudate nucleus, This likely represent a small deep infarction which could be subacute or chronic consider MRI MRI brain; 4 cm area of diffusion restriction subacute ischemia in the left MCA distribution as described Mild nonspecific chronic white matter change MRA brain; no significant abnormality on the MRI of the brain no large vessel occlusion or high-grade stenosis is appreciated CTA neck; no significant stenosis appreciated on the CT of the neck Modified barium swallow; unremarkable exam TTE; transthoracic echo; bubble study no PFO EF 55 to 60% Dysarthria; speech therapy has evaluated,, Patient's speech significantly improved still slightly slow but family Dysphagia; speech and swallow evaluated the patient modified barium swallow study today Recommended mechanical soft diet ss tolerated PT evaluation and recommendations/outpatient PT For OT evaluation recommendations/walker and home health OT Rehab evaluation --Hypertension/permissive hypertension 24 to 48 hours Continue current antihypertensives As needed medications -- Type II diabetes melitis; Accu-Cheks sliding scale coverage ADA diet and insulin as needed -- Ongoing tobacco abuse Smoking cessation counseling Discussed with sequelae of long-term tobacco use Recent complications Strongly advised to quit tobacco use, consider nicotine patch as needed --Old history of CVA without residual deficit Aspirin 325 mg p.o. daily. Lipitor 40 mg p.o. daily. PT OT speech evaluation. MRI of the brain and MRA of the brain and neck with and without contrast, echocardiogram. Neurology evaluation --DVT prophylaxis SCD for DVT prophylaxis. Pepcid 20 mg IV every 12 hours for GI prophylaxis. Patient is a full code --Counseling smoking cessation +15 minutes Advance care plan +35 minutes I have discussed in detail patient's condition, discussed patient's diagnosis I also discussed in detail patient's tests and reports, consultants recommendations I discussed the diagnosis, I discussed with the patient the prognosis, the treatment plan And therapy plan, she had many questions, answered all of them, agreed with the treatment plan We will closely monitor the patient and adjust management as needed Plan of care reviewed with the patient and nurse Same day admission prolonged care inpatient service; 30 minutes Plan of care reviewed with the patient, 2 daughters at the bedside, patient's nurse And case management History Interval history: I have seen and examined the patient at the bedside this afternoon Patient's chart and medications reviewed No new events reported by nursing staff Patient feels slightly better no new complaints Family at the bedside Vital signs noted Hospitalist Physical - Constitutional Vitals: Temp Pulse Resp BP Pulse Ox 98.0 F 100 H 18 165/88 100 11/01/21 12:15 11/01/21 12:15 11/01/21 12:15 11/01/21 12:15 11/01/21 12:15 General appearance: Present: no acute distress, well-nourished, other (Speech clear, near baseline per patient and family) - EENT Eyes: Present: PERRL, EOM intact - Neck Neck: Present: supple, normal ROM - Respiratory Respiratory effort: normal Respiratory: bilateral: diminished, negative: rales, rhonchi, wheezing - Cardiovascular Rhythm: regular Heart Sounds: Present: S1 & S2 - Extremities Extremities: no ischemia, No edema - Abdominal General gastrointestinal: soft, non-tender, non-distended, normal bowel sounds - Integumentary Integumentary: Present: clear, warm - Psychiatric Psychiatric: appropriate mood/affect, cooperative - Neurologic Neurologic: other (Acute CVA very minimal residual weakness) HEART Score - HEART Score Troponin: Troponin T < 0.010 ng/mL (0.00-0.029) 10/29/21 21:35 Results - Labs CBC & Chem 7: 10/31/21 05:46 10/31/21 12:00 Labs: Laboratory Last Values WBC 6.8 K/mm3 (4.5-11.0) 10/31/21 05:46 RBC 4.62 M/mm3 (3.65-5.03) 10/31/21 05:46 Hgb 13.4 gm/dl (10.1-14.3) 10/31/21 05:46 Hct 41.6 % (30.3-42.9) 10/31/21 05:46 MCV 90 fl (79-97) 10/31/21 05:46 MCH 29 pg (28-32) 10/31/21 05:46 MCHC 32 % (30-34) 10/31/21 05:46 RDW 14.7 % (13.2-15.2) 10/31/21 05:46 Plt Count 196 K/mm3 (140-440) 10/31/21 05:46 Lymph % (Auto) 54.2 % (13.4-35.0) H 10/31/21 05:46 [place] % (Auto) 5.7 % (0.0-7.3) 10/31/21 05:46 Eos % (Auto) 2.1 % (0.0-4.3) 10/31/21 05:46 Baso % (Auto) 0.6 % (0.0-1.8) 10/31/21 05:46 Lymph # (Auto) 3.7 K/mm3 (1.2-5.4) 10/31/21 05:46 [place] # (Auto) 0.4 K/mm3 (0.0-0.8) 10/31/21 05:46 Eos # (Auto) 0.1 K/mm3 (0.0-0.4) 10/31/21 05:46 Baso # (Auto) 0.0 K/mm3 (0.0-0.1) 10/31/21 05:46 Seg Neutrophils % 37.4 % (40.0-70.0) L 10/31/21 05:46 Seg Neutrophils # 2.5 K/mm3 (1.8-7.7) 10/31/21 05:46 PT 12.8 Sec. (12.2-14.9) 10/29/21 21:35 INR 0.87 (0.87-1.13) 10/29/21 21:35 APTT 29.3 Sec. (24.2-36.6) 10/29/21 21:35 Thrombin Time 41.5 Sec. (15.1-19.6) H 10/29/21 21:35 Sodium 139 mmol/L (137-145) 10/31/21 12:00 Potassium 4.1 mmol/L (3.6-5.0) 10/31/21 12:00 Chloride 103.8 mmol/L (98-107) 10/31/21 12:00 Carbon Dioxide 24 mmol/L (22-30) 10/31/21 12:00 Anion Gap 15 mmol/L 10/31/21 12:00 BUN 14 mg/dL (7-17) 10/31/21 12:00 Creatinine 0.9 mg/dL (0.6-1.2) 10/31/21 12:00 Estimated GFR > 60 ml/min 10/31/21 12:00 BUN/Creatinine Ratio 16 % 10/31/21 12:00 Glucose 108 mg/dL (65-100) H 10/31/21 12:00 POC Glucose 125 mg/dL (70-105) H 11/01/21 12:12 Hemoglobin A1c 6.3 % (4-6) H 10/31/21 05:46 Calcium 9.8 mg/dL (8.4-10.2) 10/31/21 12:00 Troponin T < 0.010 ng/mL (0.00-0.029) 10/29/21 21:35 Triglycerides 114 mg/dL (2-149) 10/31/21 12:00 Cholesterol 260 mg/dL (50-199) H 10/31/21 12:00 LDL Cholesterol Direct 183 mg/dL (50-130) H 10/31/21 12:00 HDL Cholesterol 54 mg/dL (40-59) 10/31/21 12:00 Cholesterol/HDL Ratio 4.81 % 10/31/21 12:00 TSH 0.791 mlU/mL (0.270-4.200) 10/31/21 17:35 Syphilis IgG/IgM Ab Nonreactive (NonReactive) 10/31/21 17:35 SARS-CoV-2 (PCR) Negative (Negative) 11/01/21 13:00 Gupta/IV: Voiding Method Toilet Nutrition/Malnutrition Assess - Dietary Evaluation Nutrition/Malnutrition Findings: Nutrition Notes Start: 10/30/21 15:54 Freq: Status: Discharge Protocol: Document 10/30/21 15:54 CHANDRIKA (Rec: 10/30/21 16:06 CHANDRIKA [id number]) Nutrition Notes Need for Assessment generated from: MD Order,Education Initial or Follow up Brief Note Current Diagnosis Diabetes,Hypertension,Stroke Other Pertinent Diagnosis H/O of CVA Current Diet Pureed Diet (D 10/30) Height 4 ft 11 in Weight 72.575 kg [place] Body Weight (kg) 43.18 BMI 32.3 Weight change and time frame No data provided at admission Weight Status Obese Subjective/Other Information RD consult for nutrition education. Pt advanced to Pureed Diet for Dinner 10/30. RECRUITER ACCOUNT MANAGER NOTE - Speech and swallowing function have been assessed. Patient was noted to demonstrate slight throat clearing and mild coughing with liquids. Recommend a MBS to further assess swallowing function and to determine the appropriate compensatory strategies for decreasing coughing with thins. Recommend a mechanical soft diet with nectar thickened liquids. Initialized on 10/30/21 15:18 - END OF NOTE ED physical assessment reviewed - GI (no data), integumentary (no breakdown), Engine Manager strength (Upper extremity strength WNL), Amublation (No data), room air @ O2 Saturation 100%. Labs and medications reviewed. Reported swallowing difficulty (water) per progress note. Pt s/p CVA 10/29. Will reassess need for diet education at follow-up. Nutrition Intervention Change Diet Order: Continue pureed diet as tolerable per RECRUITER ACCOUNT MANAGER. Follow-Up By: 11/06/21 Additional Comments Monitor % PO intake, tolerance , BM, and feasibility for nutrition education.
== END 2021-11-01 16:20 | disposition home or self-care (01) | DRG 65 ==
LOC: ED 20:24 → 4A 10-30 02:48
PROVIDERS: ADMIT Hospitalist; ATTEND Internal Medicine
DX: I63.9 Cerebral infarction, unspecified (principal); G81.94 Hemiplegia, unspecified affecting left nondominant side; I10 Essential (primary) hypertension; Z20.822 Contact with and (suspected) exposure to COVID-19; F17.200 Nicotine dependence, unspecified, uncomplicated; E11.9 Type 2 diabetes mellitus without complications; Z71.6 Tobacco abuse counseling; R13.10 Dysphagia, unspecified; R13.0 Aphagia; E66.9 Obesity, unspecified; Z68.32 Body mass index [BMI] 32.0-32.9, adult; Z83.3 Family history of diabetes mellitus; Z82.49 Family history of ischemic heart disease and other diseases of the circulatory system
CPT/HCPCS: 36415; 70450; 70498; 70544; 70551; 74230; 80048; 80061; 82962; 83036; 84443; 84484; 85025; 85610; 85670; 85730; 86592; 93005; 93306; 99285; G0378; J3490; C8929; J0360; J1650; J2405; J7030; Q9967; U0003